=== PATIENT | male | born 1995 | race Caucasian/White ===

== ENCOUNTER 2023-06-26 02:25 | Emergency (ER) | payer OTHER, BC ==
[2023-06-26 04:08] LABS: BASOPHILS PERCENT AUTO 0.8 % (0.1-1.3); EOSINOPHILS ABSOLUTE AUTO 0.12 K/uL (0.00-0.40); EOSINOPHILS PERCENT AUTO 0.9 % (0.0-5.4); IMMATURE GRAN ABSOLUTE AUTO 0.11 K/uL (0.00-0.23); IMMATURE GRAN PERCENT AUTO 0.9 % (0.0-0.7); LYMPHOCYTES ABSOLUTE AUTO 4.09 K/uL (0.8-3.3); LYMPHOCYTES PERCENT AUTO 31.8 % (11.4-47.7); MEAN CORPUSCULAR HEMOGLOBIN 27.5 pg (31.6-35.5); MEAN CORPUSCULAR HGB CONC 35.7 g/dL (31.6-35.5); MEAN CORPUSCULAR VOLUME 77.1 fL (81.4-99.0); MONOCYTES ABSOLUTE AUTO 1.16 K/uL (0.20-0.90); NEUTROPHILS ABSOLUTE AUTO 7.27 K/uL (1.0-7.6); NEUTROPHILS PERCENT AUTO 56.6 % (40.0-78.1); PLATELET COUNT,PLT 185 K/uL (130-375); RED BLOOD CELL COUNT 5.45 M/uL (4.14-5.76); WHITE BLOOD CELL COUNT,WBC 12.9 K/uL (3.2-11.0)
[2023-06-26 04:28] LABS: ALANINE AMINOTRANSFERASE,ALT 14 U/L (12-78); ALBUMIN 3.7 g/dL (3.4-5.0); ALKALINE PHOSPHATASE 113 U/L (46-116); ASPARTATE AMNIOTRANSFERASE,AST 8 U/L (15-37); BILIRUBIN TOTAL 0.5 mg/dL (0.2-1.0); BLOOD UREA NITROGEN,BUN 16 mg/dL (7-18); CALCIUM 8.1 mg/dL (8.5-10.1); CHLORIDE,CL 102 mmol/L (100-108); EST CRCL DRUG DOSING (CG) 124.29 mL/min; ESTIMATED GFR 105 mL/min (>60); GLUCOSE RANDOM 291 mg/dL (74-106); MAGNESIUM 2.1 mg/dL (1.8-2.4); POTASSIUM,K 4.5 mmol/L (3.6-5.2); SODIUM,NA 137 mmol/L (140-148)
[2023-06-26 04:30] LABS: ANION GAP 25.5 mmol/L (5.0-14.0); CARBON DIOXIDE,CO2 14 mmol/L (21-32); PROTEIN TOTAL,TP 7.3 g/dL (6.4-8.2)
[2023-06-26] MEDS: Acetaminophen 500 MG Tab PO ONE (05:50)
[2023-06-26] MEDS: Sodium Chloride 0.9% 1,000 ML IV ONE (06:45)
[2023-06-26 09:55] LABS: ALBUMIN 3.4 g/dL (3.4-5.0); ALKALINE PHOSPHATASE 105 U/L (46-116); BILIRUBIN TOTAL 0.5 mg/dL (0.2-1.0); BLOOD UREA NITROGEN,BUN 14 mg/dL (7-18); CALCIUM 8.1 mg/dL (8.5-10.1); CARBON DIOXIDE,CO2 16 mmol/L (21-32); CHLORIDE,CL 103 mmol/L (100-108); EST CRCL DRUG DOSING (CG) 124.29 mL/min; ESTIMATED GFR 105 mL/min (>60); GLUCOSE RANDOM 316 mg/dL (74-106); POTASSIUM,K 3.9 mmol/L (3.6-5.2); PROTEIN TOTAL,TP 6.7 g/dL (6.4-8.2); SODIUM,NA 137 mmol/L (140-148)
[2023-06-26 10:06] LABS: ALANINE AMINOTRANSFERASE,ALT 3 U/L (12-78); ASPARTATE AMNIOTRANSFERASE,AST 70 U/L (15-37)
[2023-06-26 10:07] LABS: ANION GAP 21.9 mmol/L (5.0-14.0)
== END 2023-06-26 11:20 | disposition home or self-care (01) ==
LOC: JP.ED 02:25
DX: S06.6X9A Traumatic subarachnoid hemorrhage with loss of consciousness of unspecified duration, initial encounter (principal); E13.9 Other specified diabetes mellitus without complications; M25.561 Pain in right knee; Z79.899 Other long term (current) drug therapy; Z79.84 Long term (current) use of oral hypoglycemic drugs; Z88.0 Allergy status to penicillin; Y04.0XXA Assault by unarmed brawl or fight, initial encounter
CPT/HCPCS: 36415; 70450; 72125; 73562; 76377; 80053; 83735; 85025; 96360; 96361; 99284; 99285; A9270; J7030